=== PATIENT | male | born 1985 | race Caucasian/White ===

== ENCOUNTER 2020-11-09 16:39 | Emergency (ER) | payer MEDICAID ==
[~2020-11-09] VITALS: Ht 188 cm; Wt 70.0 kg
[2020-11-09] MEDS ORDERED: normal saline 1000ML IV soln IVB ONE (21:50)
[2020-11-09 22:11] LABS: BASOPHILS % (AUTO) 0.2 % (0-1); EOSINOPHILS # (AUTO) 0.1 X10'3 (0-0.9); EOSINOPHILS % (AUTO) 0.5 % (0-6); HEMATOCRIT 44.5 % (42.0-52.0); HEMOGLOBIN 14.9 g/dl (14.0-17.9); LYMPHOCYTES % (AUTO) 18.1 % (21-51); MEAN CORPUSCULAR HEMOGLOBIN 31.2 PG (27.0-31.0); MEAN CORPUSCULAR HGB CONC 33.4 g/dL (33.0-36.5); MEAN CORPUSCULAR VOLUME 93.3 FL (78-98); MONOCYTES # (AUTO) 0.8 X10'3 (0-0.9); MONOCYTES % (AUTO) 7.8 % (2-12); NEUTROPHILS # (AUTO) 7.9 X10'3 (1.8-7.7); NEUTROPHILS % (AUTO) 73.4 % (42-75); PLATELET COUNT 211 X10'3 (140-440); RED BLOOD COUNT 4.77 X10'6 (4.70-6.10); RED CELL DISTRIBUTION WIDTH 12.7 % (11.5-14.5); WHITE BLOOD COUNT 10.8 X10'3 (4.5-11.0)
[2020-11-09 22:23] LABS: ALANINE AMINOTRANSFERASE 37 U/L (12-78); ALBUMIN 4.7 G/DL (3.4-5.0); ALBUMIN/GLOBULIN RATIO 1.4 (1.1-1.5); ALKALINE PHOSPHATASE 73 IU/L (46-116); ANION GAP 17 (8-16); ASPARTATE AMINO TRANSFERASE 61 U/L (10-37); BILIRUBIN,TOTAL 1.2 MG/DL (0.1-1.0); BLOOD UREA NITROGEN 17 MG/DL (7-18); CHLORIDE 96 MMOL/L (99-107); CREATININE 1.06 MG/DL (0.60-1.10); GLUCOSE 65 MG/DL (70-104); LIPASE < 50 U/L (73-393); POTASSIUM 3.4 MMOL/L (3.5-5.1); SODIUM 137 MMOL/L (135-145); TOTAL CARBON DIOXIDE 24.5 MMOL/L (24-32); TOTAL PROTEIN 8.1 G/DL (6.4-8.2); eGFR 80 ML/MIN
[2020-11-09 22:43] VITALS: BP 99/54
[2020-11-09] MEDS ORDERED: ONDA4TAB12 PO (23:26)
== END 2020-11-09 23:52 | disposition home or self-care (01) ==
LOC: ER 16:40
DX: A08.4 Viral intestinal infection, unspecified (principal)
CPT/HCPCS: 36415; 80053; 83690; 85025; 96360; 99284; J7030

== ENCOUNTER 2021-01-13 00:56 | Emergency (ER) | payer MEDICAID, OTHER ==
[~2021-01-13] VITALS: Ht 185.4 cm; Wt 79.0 kg
[~2021-01-13 00:56] MED LIST: ONDA4TAB12 PO
[2021-01-13] MEDS ORDERED: normal saline 1000ML IV soln IV ONE (01:50)
[2021-01-13] MEDS ORDERED: dexamethasone sod phosphate 10mg/ml inj IV STA (01:50)
[2021-01-13] MEDS ORDERED: clindamycin phosphate inj 600 MG in normal saline 50ml IV soln 50 ML IV ONE (01:50)
[2021-01-13] MEDS ORDERED: iohexol 300mg/ml 100ml inj. ONE (01:57)
[2021-01-13] MEDS ORDERED: ketorolac trometh. 30mg/ml inj. IV ONE (02:10)
[2021-01-13] MEDS ORDERED: clindamycin 600mg/D5W 50ml 50 ML IV ONE (02:11)
[2021-01-13 02:23] LABS: BASOPHILS # (AUTO) 0.1 X10'3 (0-0.2); BASOPHILS % (AUTO) 0.6 % (0-1); EOSINOPHILS # (AUTO) 0.1 X10'3 (0-0.9); EOSINOPHILS % (AUTO) 1.2 % (0-6); HEMOGLOBIN 12.7 g/dl (14.0-17.9); LYMPHOCYTES # (AUTO) 1.3 X10'3 (1.1-4.8); LYMPHOCYTES % (AUTO) 10.1 % (21-51); MEAN CORPUSCULAR HEMOGLOBIN 30.6 PG (27.0-31.0); MEAN CORPUSCULAR HGB CONC 34.4 g/dL (33.0-36.5); MEAN CORPUSCULAR VOLUME 88.9 FL (78-98); MEAN PLATELET VOLUME 8.1 FL (7.4-10.4); MONOCYTES # (AUTO) 1.1 X10'3 (0-0.9); MONOCYTES % (AUTO) 9.1 % (2-12); NEUTROPHILS # (AUTO) 9.8 X10'3 (1.8-7.7); PLATELET COUNT 230 X10'3 (140-440); RED BLOOD COUNT 4.16 X10'6 (4.70-6.10); WHITE BLOOD COUNT 12.5 X10'3 (4.5-11.0)
[2021-01-13 02:38] LABS: ALANINE AMINOTRANSFERASE 19 U/L (12-78); ALBUMIN/GLOBULIN RATIO 1.1 (1.1-1.5); ALKALINE PHOSPHATASE 75 IU/L (46-116); ANION GAP 13 (8-16); ASPARTATE AMINO TRANSFERASE 17 U/L (10-37); BILIRUBIN,TOTAL 0.7 MG/DL (0.1-1.0); BLOOD UREA NITROGEN 15 MG/DL (7-18); BUN/CREATININE RATIO 16.9 (5.4-32.0); CALCIUM 9.2 MG/DL (8.5-10.1); CHLORIDE 101 MMOL/L (99-107); CREATININE 0.89 MG/DL (0.60-1.10); GLUCOSE 110 MG/DL (70-104); POTASSIUM 3.8 MMOL/L (3.5-5.1); SODIUM 142 MMOL/L (135-145); TOTAL CARBON DIOXIDE 28.1 MMOL/L (24-32); TOTAL PROTEIN 7.8 G/DL (6.4-8.2); eGFR > 90 ML/MIN
[2021-01-13] MEDS ORDERED: LIDOcaine Viscous 15ml cup MM ONE (03:10)
[2021-01-13] MEDS ORDERED: PRED20TA PO (03:50)
[2021-01-13] MEDS ORDERED: CLIN300C71 PO (03:50)
[2021-01-13] MEDS ORDERED: MELO-100 PO (03:54)
[2021-01-13] MEDS ORDERED: HYDR-3965 PO (03:54)
[2021-01-13 04:14] VITALS: BP 114/84
[2021-01-13] MEDS ORDERED: LIDOcaine 1% W/epiNEPHrine 1:100,000 20ml vial ONE (08:00)
== END 2021-01-13 04:19 | disposition home or self-care (01) ==
LOC: ER 00:57
DX: J36 Peritonsillar abscess (principal); R50.9 Fever, unspecified; Z88.0 Allergy status to penicillin; Z79.2 Long term (current) use of antibiotics; Z79.899 Other long term (current) drug therapy
CPT/HCPCS: 36415; 70491; 71045; 80053; 83605; 83735; 84145; 85025; 87040; 96374; 96375; 99285; J1100; J1885; J7030; Q9967; J3490

== ENCOUNTER 2021-02-06 14:35 | Emergency (ER) | payer OTHER ==
[~2021-02-06] VITALS: Ht 185.4 cm; Wt 77.3 kg
[~2021-02-06 14:35] MED LIST changes: +HYDR-3965 PO; +MELO-100 PO
[2021-02-06 14:45] VITALS: BP 128/84
[2021-02-06] MEDS ORDERED: CEPH-585 PO (20:49)
[2021-02-06] MEDS ORDERED: SULF1TAB49 PO (20:49)
== END 2021-02-06 16:27 | disposition left against medical advice (07) ==
LOC: ER 14:36
DX: T14.8XXA Other injury of unspecified body region, initial encounter (principal); Z53.21 Procedure and treatment not carried out due to patient leaving prior to being seen by health care provider; W57.XXXA Bitten or stung by nonvenomous insect and other nonvenomous arthropods, initial encounter; Y93.89 Activity, other specified; Y92.89 Other specified places as the place of occurrence of the external cause; Y99.8 Other external cause status

== ENCOUNTER 2021-02-06 18:46 | Emergency (ER) | payer OTHER ==
[~2021-02-06] VITALS: Ht 185.4 cm; Wt 78.6 kg
[2021-02-06 19:05] VITALS: BP 122/77
[2021-02-06] MEDS ORDERED: TETanus/Pertussis (Acell)/Diphther VAC/PF (Tdap-Adult) 0.5ml syringe IMVAC ONE (20:40)
[2021-02-06] MEDS ORDERED: SULF1TAB49 PO (20:49)
[2021-02-06] MEDS ORDERED: CEPH-585 PO (20:49)
[2021-02-06] MEDS ORDERED: mupirocin 2% ointment 22GM TP STA (21:15)
== END 2021-02-06 22:15 | disposition home or self-care (01) ==
LOC: ER 18:46
DX: K13.0 Diseases of lips (principal); Z20.3 Contact with and (suspected) exposure to rabies; Z88.0 Allergy status to penicillin; Z79.2 Long term (current) use of antibiotics; Z79.899 Other long term (current) drug therapy
CPT/HCPCS: 10060; 90471; 90715; 99283

== ENCOUNTER 2022-03-23 18:53 | Emergency (ER) | payer MEDICAID ==
[~2022-03-23] VITALS: Ht 185.4 cm; Wt 78.6 kg
[~2022-03-23 18:53] MED LIST changes: -HYDR-3965 PO
[2022-03-23 19:24] VITALS: BP 109/80
== END 2022-03-23 20:33 | disposition home or self-care (01) ==
LOC: ER 18:54
DX: S50.11XA Contusion of right forearm, initial encounter (principal); Z88.0 Allergy status to penicillin; Z79.899 Other long term (current) drug therapy; Y04.8XXA Assault by other bodily force, initial encounter; Y93.89 Activity, other specified; Y92.89 Other specified places as the place of occurrence of the external cause; Y99.8 Other external cause status
CPT/HCPCS: 73090; 99283